=== PATIENT | male | born 1975 | race African-American/Black ===

== ENCOUNTER → 2016-10-12 | Outpatient (CLI) | payer OTHER ==
--- NOTE | ~2016-10-12 | CR90 ---
[facility] A Service of [facility] RADIOLOGY TEXT RESULTS PATIENT: ANABEL RATLIFF LOCATION: [facility] : 79 UNIT #: [id number] AGE: [address]: MER GOMEZ MD SEX: M ORDER DR: [id number] [facility] [address] [place], [place] [address] [id number] O MR#: [id number] Acc #: [id number] NAME: ANABEL RATLIFF : 1975 SEX: M STUDY DATE/TIME: 10/12/2016 16:11 UNIT: [facility] ROOM: STUDY DESCRIPTION: CR Elbow 2 View Lt Attending Physician: Mer Gomez M.D. Referring Physician: Mer Gomez M.D. Ordering Physician: Mer Gomez M.D. Primary Care Physician: Mer Gomez M.D. MEDICAL IMAGING REPORT This report is preliminary unless electronic signature is present EXAM 3 views left elbow INDICTIONS Lateral epicondylitis. It has been present for 4 months. Patient reports left lateral and posterior elbow pain. FINDINGS AP and lateral examination of the elbow shows satisfactory articulation of the humerus with the proximal radius and ulna. There is no identifiable fracture, dislocation, joint effusion, or radiopaque foreign body in the soft tissues. IMPRESSION Normal elbow. Dictated by... Carleen Garcia M.D. THIS IS AN ELECTRONICALLY VERIFIED REPORT Carleen Garcia M.D. at 10/14/2016 12:58 PM AFF/bambi TD: 10/13/2016 13:29 JOB #: [id number] MEDICAL IMAGING REPORT Page 1 of 1 COPY
== END | disposition home or self-care (01) ==
LOC: CRAD 15:47
DX: M77.10 Lateral epicondylitis, unspecified elbow (principal)
CPT/HCPCS: 73070